=== PATIENT | female | born 1990 | race Caucasian/White ===

== ENCOUNTER 2021-12-02 12:05 | Outpatient (CLI) | payer SELFPAY | END 2021-12-02 12:06 | disposition home or self-care (01) | LOC: CSHLAB 12:05 | PROVIDERS: ATTEND Obstetrics & Gynecology | DX: Z20.822 Contact with and (suspected) exposure to COVID-19 (principal) | CPT/HCPCS: 87811 ==

== ENCOUNTER 2021-12-02 21:40 | Day surgery (SDC) | payer SELFPAY ==
[2021-12-02 22:12] VITALS: BMI 28.1
[2021-12-02] MEDS ORDERED: hydrALAZINE 20 MG/ML VIAL SLOW IVP PRN (23:44)
== END 2021-12-02 23:56 | disposition home or self-care (01) ==
LOC: CSHLD/OP 21:40
PROVIDERS: ATTEND Obstetrics & Gynecology
DX: O47.1 False labor at or after 37 completed weeks of gestation (principal); O48.0 Post-term pregnancy; Z3A.41 41 weeks gestation of pregnancy
CPT/HCPCS: 99283

== ENCOUNTER 2021-12-03 08:36 | Day surgery (SDC) | payer SELFPAY ==
[2021-12-03 09:16] VITALS: BMI 28.1
[2021-12-03] MEDS ORDERED: hydrALAZINE 20 MG/ML VIAL SLOW IVP PRN (09:26)
[2021-12-03] MEDS ORDERED: Promethazine HCl 25 MG/ML VIAL IM PRN (09:26)
[2021-12-03] MEDS ORDERED: Ondansetron PF 4 MG/2 ML Vial IVP PRN (09:26)
[2021-12-03] MEDS ORDERED: Morphine 4 MG/ML VIAL SLOW IVP SCH (09:30)
[2021-12-03] MEDS ORDERED: Ondansetron PF 4 MG/2 ML Vial IVP SCH (09:30)
[2021-12-03] MEDS ORDERED: Lactated Ringer's 1,000 ML IV SCH (09:30)
== END 2021-12-03 11:45 | disposition home or self-care (01) ==
LOC: CSHLD/OP 08:36
PROVIDERS: ATTEND Obstetrics & Gynecology
DX: O47.1 False labor at or after 37 completed weeks of gestation (principal); O21.2 Late vomiting of pregnancy; Z3A.41 41 weeks gestation of pregnancy
CPT/HCPCS: 96360; 96372; 96375; 99282; J2270; J2550

== ENCOUNTER 2021-12-04 14:01 | Inpatient (IN) | payer OTHER, SELFPAY ==
[2021-12-04] MEDS ORDERED: hydrALAZINE 20 MG/ML VIAL SLOW IVP PRN ×2 (14:15→23:49)
[2021-12-04 14:53] VITALS: BMI 28.1
[2021-12-04] MEDS ORDERED: Butorphanol Tartrate 1 MG/ML VIAL SLOW IVP PRN (14:55)
[2021-12-04] MEDS ORDERED: Ondansetron PF 4 MG/2 ML Vial IVP PRN ×3 (14:55→23:49)
[2021-12-04] MEDS ORDERED: Promethazine HCl 25 MG/ML VIAL IM PRN ×2 (14:55→22:32)
[2021-12-04] MEDS ORDERED: Lactated Ringer's 1,000 ML IV SCH (15:00)
[2021-12-04] MEDS ORDERED: Acetaminophen 500 MG TAB PO PRN (15:31)
[2021-12-04] MEDS ORDERED: Misoprostol 200 MCG TAB PR PRN (15:31)
[2021-12-04] MEDS ORDERED: Lidocaine 1% (PF) 30 ML VIAL SC PRN (15:31)
[2021-12-04] MEDS ORDERED: Ibuprofen 800 MG TAB PO PRN (15:31)
[2021-12-04] MEDS ORDERED: Methylergonovine 0.2 MG/ML VIAL IM PRN (15:31)
[2021-12-04] MEDS ORDERED: Carboprost 250 MCG/ML AMP IM PRN (15:31)
[2021-12-04] MEDS ORDERED: NS w/ Oxytocin 30 units 500 ML IV SCH ×4 (15:45→23:45)
[2021-12-04] MEDS ORDERED: Misoprostol 100 MCG TAB VAG SCH (15:45)
[2021-12-04 16:27] LABS: Hemoglobin 13.7 g/dL (12.0-15.5); Mean Corpuscular HGB CONC 35.6 g/dL (32.0-36.0); Mean Corpuscular Hemoglobin 28.4 pg (27.0-33.0); Mean Corpuscular Volume 79.7 fl (81.6-98.3); Mean Platelet Volume 10.3 fl (7.4-10.4); Platelet Count 439 10x3/uL (150-450); RBC Distribution Width 14.4 % (11.5-14.5); Red Blood Cell (RBC) Count 4.83 10x6/uL (3.90-5.03); White Blood Cell (WBC) Count 17.2 10x3/uL (3.5-10.5)
[2021-12-04 17:00] LABS: Hep B Surf Ag Non-Reactive S/CO (NonReactive); Syphilis Antibody Nonreactive (Nonreactive); Syphilis Antibody Index 0.04 S/CO (<1.00 Non-Reactive)
[2021-12-04 17:02] LABS: HBSAg Index 0.23 S/CO (0-0.99)
[2021-12-04] MEDS ORDERED: CEFAZOLIN 2 GM in Sodium Chloride 0.9% 100 ML IVPB NR (19:15)
[2021-12-04] MEDS ORDERED: ceFAZolin Sodium/D5W 2 GM in Premix Bag 1 BAG IVPB SCH (19:15)
[2021-12-04] MEDS ORDERED: Fentanyl 2 mcg/Bup 0.1% Cadd 100 ML ONE (19:27)
[2021-12-04] MEDS ORDERED: Lidocaine 1% (PF) 30 ML VIAL ONE (19:39)
[2021-12-04] MEDS ORDERED: NS w/ Oxytocin 30 units 500 ML ONE (19:39)
[2021-12-04] MEDS ORDERED: diphenhydrAMINE 50 MG/ML VIAL IVP PRN (22:32)
[2021-12-04] MEDS ORDERED: ePHEDrine Sulfate 50 MG/10 ML VIAL SLOW IVP PRN (22:32)
[2021-12-04] MEDS ORDERED: Moisturizing Cream (Eucerin) 113 GM JAR TOP PRN (22:32)
[2021-12-04] MEDS ORDERED: Naloxone HCl 0.4 mg/ml Vial IVP PRN ×2 (22:32)
[2021-12-04] MEDS ORDERED: Acetaminophen 325 MG TAB PO PRN (22:32)
[2021-12-04] MEDS ORDERED: Lactated Ringer's 500 ML IV PRN (22:32)
[2021-12-04] MEDS ORDERED: Communication Order-Pharmacy FS SCH (22:45)
[2021-12-04] MEDS ORDERED: Fentanyl 2 mcg/Bupivacaine 0.1% Cassette 100 ML EPIDURAL SCH (22:45)
[2021-12-04] MEDS ORDERED: Zolpidem Tartrate 5 MG TAB PO PRN (23:49)
[2021-12-04] MEDS ORDERED: diphenhydrAMINE 25 MG CAP PO PRN (23:49)
[2021-12-04] MEDS ORDERED: Benzocaine-Menthol 82.5 ML CAN TOP PRN (23:49)
[2021-12-04] MEDS ORDERED: Bisacodyl 10 MG SUPP PR PRN (23:49)
[2021-12-04] MEDS ORDERED: Lanolin Ointment 7 GM TUBE TOP PRN (23:49)
[2021-12-04] MEDS ORDERED: Misoprostol 200 MCG TAB VAG PRN (23:49)
[2021-12-04] MEDS ORDERED: Milk Of Magnesia 30 ML UDCUP PO PRN (23:49)
[2021-12-04] MEDS ORDERED: Preparation H Ointment 28 GM TUBE PR PRN (23:49)
[2021-12-04] MEDS ORDERED: Boostrix 0.5 ML (Tdap) VIAL IM ONE (23:49)
[2021-12-04] MEDS ORDERED: HYDROcodone/Acetaminophen 5/325 mg Tablet PO PRN ×2 (23:49)
[2021-12-05] MEDS: Ibuprofen 800 MG TAB PO SCH ×3 (05:16→21:31)
[2021-12-05 05:29] LABS: Hemoglobin 10.8 g/dL (12.0-15.5); Mean Corpuscular HGB CONC 36.6 g/dL (32.0-36.0); Mean Corpuscular Hemoglobin 28.3 pg (27.0-33.0); Mean Corpuscular Volume 77.4 fl (81.6-98.3); Mean Platelet Volume 10.1 fl (7.4-10.4); Platelet Count 314 10x3/uL (150-450); RBC Distribution Width 14.5 % (11.5-14.5); Red Blood Cell (RBC) Count 3.81 10x6/uL (3.90-5.03); White Blood Cell (WBC) Count 16.9 10x3/uL (3.5-10.5)
[2021-12-05] MEDS: Ferrous Sulfate 325 MG TAB PO SCH (07:01)
[2021-12-05] MEDS: Docusate 100 MG CAP PO SCH ×2 (08:04→21:30)
[2021-12-05] MEDS: Prenatal Vitamin 1 TAB PO SCH (08:04)
[2021-12-06] MEDS: Ibuprofen 800 MG TAB PO SCH ×2 (05:18→13:43)
[2021-12-06] MEDS: Prenatal Vitamin 1 TAB PO SCH (07:58)
[2021-12-06] MEDS: Docusate 100 MG CAP PO SCH (07:58)
[2021-12-06 07:59] VITALS: BP 114/74; TEMP 97.7
[2021-12-06] MEDS: Ferrous Sulfate 325 MG TAB PO SCH ×2 (07:59→16:51)
== END 2021-12-06 17:35 | disposition home or self-care (01) | DRG 807 ==
LOC: CSHLD/OP 14:01 → EEVIPCON 14:01 → CSHLD 15:27 → CSHPP 12-05 02:30
PROVIDERS: ADMIT Obstetrics & Gynecology; ATTEND Obstetrics & Gynecology
PROC: 10D07Z6 Extraction of Products of Conception, Vacuum, Via Natural or Artificial Opening (ICD-10-PCS; principal; 2021-12-05)
PROC: 0KQM0ZZ Repair Perineum Muscle, Open Approach (ICD-10-PCS; 2021-12-05)
DX: O76 Abnormality in fetal heart rate and rhythm complicating labor and delivery (principal); Z37.0 Single live birth; Z3A.41 41 weeks gestation of pregnancy; Z20.822 Contact with and (suspected) exposure to COVID-19; Z90.89 Acquired absence of other organs; O48.0 Post-term pregnancy; O70.1 Second degree perineal laceration during delivery; O42.02 Full-term premature rupture of membranes, onset of labor within 24 hours of rupture
CPT/HCPCS: 51702; 76819; 85027; 86780; 86850; 86900; 86901; 87340; 99285; J0595; J2405; J7120